=== PATIENT | female | born 1965 | race Caucasian/White ===

== ENCOUNTER 2016-09-01 08:47 | Day surgery (SDC) | payer OTHER ==
[~2016-09-01] VITALS: Ht 152.4 cm; Wt 59.4 kg
[2016-09-01 09:35] VITALS: BP 177/74; PULSE 76; RESP 16; Ht 152.4 cm; Wt 59.4 kg
[2016-09-01] MEDS ORDERED: SOD CHLORIDE 0.9% 1,000 ML IV SCH (10:00)
[2016-09-01] MEDS ORDERED: CAPTOPRIL PO (10:29)
[2016-09-01] MEDS ORDERED: ATOR20TA38 PO (10:29)
[2016-09-01] MEDS ORDERED: ATEN-51 PO (10:32)
[2016-09-01] MEDS ORDERED: LANT3I SC (10:32)
[2016-09-01] MEDS ORDERED: INSU100C SQ (10:32)
[2016-09-01 10:45] VITALS: BP 172/82
[2016-09-01] MEDS ORDERED: LIDOCAINE 1% (MDV) 20 ML INJ ONE (11:11)
[2016-09-01 12:35] VITALS: BP 188/85; PULSE 78; RESP 20
[2016-09-01 13:45] VITALS: BP 183/79; PULSE 73; RESP 18
[2016-09-01 14:30] VITALS: BP 142/71; PULSE 71; RESP 18
--- NOTE | 2016-09-01 15:40 | RADRPT ---
PROCEDURE: Ultrasound guided liver biopsy. CLINICAL INDICATION: Chronic Cholestasis. TECHNIQUE: Informed consent was obtained. The procedure, risks, benefits, complications and alternatives were explained to the patient. Risks including bleeding and infection were explained. The patient unders tood and was willing to proceed. A procedural pause was performed. The patient's name, date of , and procedure to be performed w ere verified. Using local anesthetic, sterile technique and ultrasound guidance, an 18-gauge automated core biopsy needle was used to biopsy the right hepatic lobe. 2 passes were made. Adequate tissue was obtained and sent for pathologic analysis. A dressing was applied. The patient tolerated procedure well. COMPARISON: None. FINDINGS: Ultrasound imaging demonstrates the liver to be 1.8 cm deep to the skin. IMPRESSION: 1. Successful ultrasound guided liver biopsy. RPTAT: QQ .Prem Mcclure MD, Date Time Electronically viewed and signed by .Prem Mcclure MD, on 09/01/2016 15:40 .R/
== END 2016-09-01 17:20 | disposition home or self-care (01) ==
LOC: SDS 08:47 → GIL 08:47 → SDS 17:20
PROVIDERS: ATTEND Transplant Surgery
DX: K73.9 Chronic hepatitis, unspecified (principal); J84.10 Pulmonary fibrosis, unspecified; I10 Essential (primary) hypertension; E78.5 Hyperlipidemia, unspecified; E11.9 Type 2 diabetes mellitus without complications
CPT/HCPCS: 47000; 76942; 82962; 88307; 88313; Z7610

== ENCOUNTER 2018-10-02 07:46 | Day surgery (SDC) | payer OTHER ==
[~2018-10-02] VITALS: Ht 152.4 cm; Wt 51.4 kg
[2018-10-02] VITALS (7 sets, daily range): BP systolic 120–182; BP diastolic 61–82; PULSE 71–85; RESP 18–22; Ht 152.4 cm; Wt 51.4 kg
[~2018-10-02 07:46] MED LIST: ATEN-51 PO; ATOR20TA38 PO; CAPTOPRIL PO; INSU100C SQ; LANT3I SC
[2018-10-02] MEDS ORDERED: URSODIOL PO (09:57)
--- NOTE | 2018-10-02 10:06 | PREAC ---
Date/Time of Note Date/Time of Note DATE: 10/02/18 TIME: 10:05 Anesthesia Eval and Record Evaluation Time Pre-Procedure Interview DATE: 10/02/18 TIME: 10:05 Age 53 Sex female NPO: 8 hrs Preoperative diagnosis cirrhosis Planned procedure egd, colonoscopy Past Medical History Past Medical History: Includes Cardio: HTN, Dyslipidemia Endo: Diabetes Musculoskeletal: Osteoarthritis Hepatic: Cirrhosis GI: GERD Heme: Anemia Surgery & Anesthesia Issues No known issue Meds Anticoagulation: No Beta Sera within 24 hr: No Reason Beta Sera not given: Pt. not on B-Sera Reported Medications [Ursodiol] No Conflict Check, PO 10/02/18 Insulin Lispro (Humalog) 100 Unit/1 Ml Cartridge, 100 UNIT SQ 09/01/16 Insulin Glargine* (Lantus*) 100 Unit/Ml Soln, 1 UNIT SC BID, #1 VIAL 09/01/16 Atenolol* (Atenolol*) 25 Mg Tablet, 25 MG PO DAILY, #30 TAB 09/01/16 Atorvastatin Calcium* (Atorvastatin Calcium*) 20 Mg Tablet, 20 MG PO QHS, #30 TAB 09/01/16 [Captopril] No Conflict Check, 25 MG PO DAILY 09/01/16 Meds reviewed: Yes Allergies Coded Allergies: No Known Allergy (Unverified , 09/01/16) Allergies Reviewed: Yes Labs/Studies Labs Reviewed: Reviewed by anesthesiologist test: Negative Studies: ECG Pre-procedure Exam Airway: Adequate mouth opening, Adequate thyromental dist Mallampati: Mallampati II Teeth: Normal Lung: Normal Heart: Normal ASA Physical Status ASA physical status: 3 Emergency: None Planned Anesthetic General/MAC: Mask, MAC Pre-operative Attestations Prior to commencing anesthesia and surgery, the patient was re-evaluated, there was verification of: *The patient's identity *The results of appropriate recent lab work and preoperative vital signs *The above evaluation not changing prior to induction *Anesthetic plan, risk benefits, alternative and complications discussed with patient/family; questions answered; patient/family understands, accepts and wishes to proceed. LING LAL Oct 02, 2018 10:06
--- NOTE | 2018-10-02 10:18 | HPN ---
Date/Time of Note Date/Time of Note DATE: 10/02/18 TIME: 10:18 Interval H&P Admission Note Pt. seen H&P reviewed: No system changes STIVEN YEE Oct 02, 2018 10:18
[2018-10-02] MEDS ORDERED: LABETALOL HCL 20MG INJ IV ONE (12:00)
[2018-10-02] MEDS ORDERED: hydrALAzine 20 MG INJ IV ONE (12:30)
--- NOTE | 2018-10-02 13:36 | PAC ---
Date/Time of Note Date/Time of Note DATE: 10/02/18 TIME: 13:36 Post-Anesthesia Notes Post-Anesthesia Note Last documented vital signs Vital Signs Date Temp Pulse Resp B/P (MAP) Pulse Ox O2 O2 Flow FiO2 Time Delivery Rate 10/02/18 85 128/61 12:45 (83) 10/02/18 98.1 20 99 Room Air 12:17 Activity: WNL Respiratory function: WNL Cardiovascular function: WNL Mental status: Baseline Pain reasonably controlled: Yes Hydration appropriate: Yes Nausea/Vomiting absent: Yes LING LAL Oct 02, 2018 13:36
== END 2018-10-02 12:55 | disposition home or self-care (01) ==
LOC: GIL 07:46
PROVIDERS: ATTEND Internal Medicine Gastroenterology
DX: Z12.11 Encounter for screening for malignant neoplasm of colon (principal); K64.8 Other hemorrhoids; K29.50 Unspecified chronic gastritis without bleeding; I10 Essential (primary) hypertension; E11.9 Type 2 diabetes mellitus without complications
CPT/HCPCS: 43239; 45380; 82962; 88305; 88312; J0360; Z7610